=== PATIENT | male | born 1975 | race Caucasian/White ===

== ENCOUNTER → 2023-05-05 14:13 | Outpatient (REF) | payer OTHER, SELFPAY | LOC: RAD 14:13 | PROVIDERS: ATTENDING PHYSICIAN Family Medicine; FAMILY PHYSICIAN Internal Medicine | DX: M25.811 Other specified joint disorders, right shoulder (principal) | CPT/HCPCS: 73030 ==

== ENCOUNTER 2023-06-26 14:49 | Emergency (ER) | payer OTHER, SELFPAY ==
[2023-06-26 14:56] VITALS: BP 141/92
[2023-06-26 16:47] VITALS: BMI 25.2
[2023-06-26] MEDS: KEFLEX 500 MG PO (17:58)
[2023-06-26] MEDS: ADACEL 0.5 ML IM (17:59)
--- NOTE | 2023-06-26 17:59 | ED.GENMED ---
History of Present Illness
General
Chief Complaint: Skin Surface Trauma
Time Seen by Provider: 06/26/23 16:45
Travel History
Have you had any contact with someone who has COVID-19?: No
Do you have any symptoms of coronavirus? Fever > 100 degrees, chills, cough, shortness of breath, sore throat, loss of taste or smell, muscle aches, or headache?: No
History of Present Illness
History of Present Illness:
47-year-old male presents the emergency department for evaluation of a left third finger laceration sustained while using a table saw. Last tetanus was between 5 and 10 years ago. Bleeding is controlled, does not take anticoagulants.
Past History
Past History
ED Past Medical History: None
ED Past Surgical History: None
Social History
Tobacco: Non-smoker
Alcohol: None
Drug: None
Living: with family
Employment: Employed
Review of Systems
Review of Systems
Allergies reviewed?: Yes
All Other Systems: ROS reviewed and negative except as documented in HPI and ROS
Phy Exam
Physical Exam
Physical Exam:
GEN: Well appearing, NAD, WDWN
HEENT: Oral mucosa moist, no scleral icterus
Cardiac: Regular rate
Lung: No respiratory distress, no tachypnea
MSK: No gross deformity or injuries
Skin: Good color, no pallor or jaundice, no rashes. 1 cm macerated flap type wound to the distal aspect of the left middle finger with partial nail plate injury and evidence of bony injury to the tuft
Neuro: AO x3, moves all extremities freely
Psych: Calm, cooperative
Course
Orders/Labs/Results
Orders:
Orders
06/26/23 17:15
Finger(s)/Thumb 2 View Lt [CR Finger(s)/thumb Min 2 Vw Lt] Urgent
Comment:
Reason For Exam: cut L middle finger with table saw
Indicate Which Finger:: Middle Finger
06/26/23 17:33
Cephalexin Monohydrate [Keflex] 500 mg PO NOW STA
Tetanus/Diphth/Acelpertussis [Adacel] 0.5 ml IM .ONCE ONE
Vital Signs
Initial and Last Documented VS:
Initial Vital Signs
Temp Pulse Resp BP Pulse Ox
98.7 F 63 16 141/92 96
06/26/23 14:56 06/26/23 14:56 06/26/23 14:56 06/26/23 14:56 06/26/23 14:56
Last Documented Vital Signs
Temp Pulse Resp BP Pulse Ox
98.7 F 63 16 141/92 96
06/26/23 14:56 06/26/23 14:56 06/26/23 14:56 06/26/23 14:56 06/26/23 14:56
Procedures
Laceration Closure
Left Third Finger:
Status of Wound: clean
Size of Wound in cm: 1
Description of Wound Edges: ragged and flap-well vascularized
Preparation: cleaned with saline
Anesthesia: 1% Lidocaine and Digital-Regional
Type of Closure: single layer closure
Skin Closure Material: 5-0 prolene
Number of sutures: 3
MDM/Problems Addressed
MDM/Problems Addressed:
Wound loosely re-approximated after copious irrigation, will cover with abx due to tuft injury. No evidence for tendon injury. Recommend hand surgery f/u
*Critical Care Note
Total Time (30-74mins, 75-104mins- exclusive of procedures): Not Applicable
ED Attending Note
-
Portions of this chart may have been created with voice recognition software.� Occasional wrong word or��sound alike� substitutions may have occurred due to the inherent limitations of voice recognition software.
Discharge Plan
Departure
Patient Disposition: Home (Routine Discharge)
Date of Disposition: 06/26/23
Time of Disposition: 17:59
Patient with high blood pressure during this ER visit?: No
Discharge Problem:
Laceration of left middle finger with damage to nail, Open fracture of middle phalanx of finger of left hand
Instructions: Wound Care (DC)
Prescriptions:
New
cephalexin 500 mg capsule
500 mg PO Q8H 7 Days Qty: 21 0RF
No Action
cephalexin 500 MG capsule
500 mg PO QID Qty: 28 0RF
Referrals:
Sunitha Davila MD [Family Provider] -
Coy Sierra MD [Active] -
Activity Restrictions/Additional Instructions:
Keep dry for 24 hours then gently wash each day with soap and water
Keep covered daily until wound stops draining
Take the antibiotic prescription fully
Follow up with hand surgery in 7-10 days for suture removal
Interventions
Interventions:
*Risk Screen - Suicide Last Done: 06/26/23 16:48
*General Assessment Last Done: 06/26/23 16:48
*Neglect/Abuse Screening Last Done: 06/26/23 16:48
*ED COVID-19 Vaccine History Last Done: 06/26/23 14:56
*Nursing Disposition Last Done: 06/26/23 18:06
ED-Skin Assessment Last Done: 06/26/23 16:48
Discharge Date and Time
Discharge Date/Time: 06/26/23 18:07
Print Language: DOMINICAN
== END 2023-06-26 18:07 | disposition home or self-care (01) ==
LOC: EMR 14:49
PROVIDERS: EMERGENCY PHYSICIAN Emergency Medicine; FAMILY PHYSICIAN Internal Medicine
DX: S62.623B Displaced fracture of middle phalanx of left middle finger, initial encounter for open fracture (principal); S61.213A Laceration without foreign body of left middle finger without damage to nail, initial encounter; W31.2XXA Contact with powered woodworking and forming machines, initial encounter
CPT/HCPCS: 99283; 12001; 90471; 73140; 90715

== ENCOUNTER 2025-01-15 06:22 | Day surgery (SDC) | payer BC, OTHER, SELFPAY | END 2025-01-15 15:30 | disposition home or self-care (01) | LOC: GI 06:22 | PROVIDERS: ATTENDING PHYSICIAN Internal Medicine Gastroenterology | DX: Z12.11 Encounter for screening for malignant neoplasm of colon (principal); K64.8 Other hemorrhoids; K63.5 Polyp of colon; Z86.0100 Personal history of colon polyps, unspecified; K63.89 Other specified diseases of intestine | CPT/HCPCS: 45380; 88305 ==